=== PATIENT | female | born 1970 | race African-American/Black ===

== ENCOUNTER 2024-01-09 11:08 | Emergency (ER) | payer SELFPAY ==
[2024-01-09 11:46] VITALS: TEMP 98.3; BMI 37.8
[2024-01-09] MEDS ORDERED: LISINOPRIL 20 MG TABLET ONE (12:05)
[2024-01-09] MEDS ORDERED: HYDROCHLOROTHIAZIDE 25 MG TABLET (FP) ONE (12:05)
[2024-01-09] MEDS ORDERED: ACETAMINOPHEN 500 MG TABLET (FP) ONE (12:11)
[2024-01-09] MEDS: ACETAMINOPHEN 500 MG TABLET (FP) PO ONE (12:27)
[2024-01-09] MEDS: HYDROCHLOROTHIAZIDE 25 MG TABLET (FP) PO ONE (12:27)
[2024-01-09] MEDS: LISINOPRIL 20 MG TABLET PO ONE (12:27)
[2024-01-09 12:34] LABS: BASO % 0.8 % (0-2.0); EOS % 3.7 % (0-4.5); HEMATOCRIT 34.7 % (32.4-45.2); LYMPH % 23.8 % (8-40); MCH 22.3 pg (25.7-33.7); MCHC 31.6 g/dl (32.0-36.0); MEAN CELL VOLUME 70.5 fl (80-96); MEAN PLT VOLUME 7.7 fl (7.5-11.1); MONO % 9.8 % (3.8-10.2); NEUT % 61.9 % (42.8-82.8); PLATELET COUNT 396 10^3/uL (134-434); RBC 4.92 M/mm3 (3.60-5.2); RDW 19.5 % (11.6-15.6); WHITE BLOOD COUNT 6.4 K/mm3 (4.0-10.0)
[2024-01-09 12:40] LABS: INR 0.9 (0.83-1.09); PROTHROMBIN TIME (PATIENT) 10.4 SEC (9.7-13.0)
[2024-01-09 12:42] LABS: ACTIVATED PTT 30.5 SECONDS (25.2-36.5)
[2024-01-09 12:54] LABS: CHLORIDE 104 mmol/L (98-107); POTASSIUM 4.5 mmol/L (3.5-5.1); SODIUM 137 mmol/L (136-145)
[2024-01-09 12:56] LABS: ALBUMIN 2.8 g/dl (3.4-5.0); CALCIUM 8.7 mg/dL (8.5-10.1)
[2024-01-09 12:57] LABS: ANION GAP 8 mmol/L (4-13); BLOOD UREA NITROGEN 18.7 mg/dL (7-18); CO2 24 mmol/L (21-32); MAGNESIUM 1.9 mg/dL (1.8-2.4)
[2024-01-09 12:58] LABS: GLUCOSE,RANDOM 434 mg/dL (74-106)
[2024-01-09 13:00] LABS: CREATININE 1.5 mg/dL (0.55-1.3); SGOT/AST 20 U/L (15-37); SGPT/ALT 21 U/L (13-61)
[2024-01-09 13:02] LABS: BILIRUBIN,TOTAL 0.2 mg/dL (0.2-1); TOT PROT 7.2 g/dl (6.4-8.2)
[2024-01-09 13:03] LABS: ALK PHOS 84 U/L (45-117)
[2024-01-09 13:11] LABS: ERYTHROCYTE SEDIMENTATION RATE 31 mm/hr (0-30)
[2024-01-09 13:36] LABS: EPI CELLS 12 /uL (0-25.1); HYALINE CASTS 0 /uL (0-3.1); PH,URINE 5.5 (5.0-8.0); URINE APPEARANCE CLEAR; URINE BACTERIA 122 /uL (0-1359); URINE BILIRUBIN NEGATIVE (NEGATIVE); URINE COLOR YELLOW; URINE GLUCOSE (UA) 3+ (NEGATIVE); URINE KETONE NEGATIVE (NEGATIVE); URINE LEUK ESTERASE NEGATIVE (NEGATIVE); URINE NITRITE NEGATIVE (NEGATIVE); URINE PROTEIN 2+ (NEGATIVE); URINE RBC 12 /uL (0-23.9); URINE UROBILINOGEN 0.2 mg/dL (0.2-1.0); URINE WBC 14 /uL (0-25.8)
[2024-01-09 13:48] LABS: VENOUS BASE EXCESS -1.6 mmol/L (-2-2); VENOUS O2 SATURATION 79.7 % (70-80); VENOUS PCO2 39.7 mmHg (38-52); VENOUS PH 7.385 (7.310-7.410)
[2024-01-09] MEDS ORDERED: LIDOCAINE 4% PATCH TP ONE ×2 (14:07→14:26)
[2024-01-09] MEDS: LIDOCAINE 4% PATCH TP ONE (14:15)
[2024-01-09] MEDS: LACTATED RINGERS SOLUTION 1000 ML INFUS.BAG IV ONE (14:15)
[2024-01-09 16:40] VITALS: BP 179/105; PULSE 62; RESP 20
[2024-01-09] MEDS ORDERED: LIDOCAINE PATCH REMOVAL MC ONE (22:00)
== END 2024-01-09 16:37 | disposition home or self-care (01) ==
LOC: JER 11:08
DX: M25.511 Pain in right shoulder (principal); M25.512 Pain in left shoulder; M62.81 Muscle weakness (generalized); R79.89 Other specified abnormal findings of blood chemistry; Z20.822 Contact with and (suspected) exposure to COVID-19
CPT/HCPCS: 0241U-QW; 36415; 71045-TC-FY; 71275-TC; 80053; 81003; 82010; 82803; 83735; 84439; 84443; 84484; 85025; 85379; 85610; 85651; 85730; 86140; 87086; 93005; 93010; 99285-25; Q9967